=== PATIENT | female | born 1980 | race Caucasian/White ===

== ENCOUNTER 2018-06-16 13:52 | Outpatient (CLI) | payer OTHER ==
--- NOTE | 2018-06-16 15:15 | MRI ---
MRI CERVICAL SPINE WITHOUT CONTRAST: Technique: Multiplanar, multisequence MRI images were obtained of the cervical spine without contrast . Indication: Cervical radiculopathy. Neck pain with left shoulder radiation. FINDINGS: The cervical vertebra maintain normal height and alignment. Vertebral body signal appears normally ma intained. Disc spaces are maintained. No evidence of significant disc bulge or spondylosis seen at C2-3, C3-4, or C4-5. Foramina are patent at these levels. At C4-5, mild broad based disc bulge flattens the anterior thecal sac. The anterior subarachnoid spac e is preserved. There is no evidence of foraminal encroachment. At C6-7, minimal disc bulge and spondylosis flatten the thecal sac. Anterior subarachnoid space is pr eserved. Cervical cord signal is normal. IMPRESSION: 1. Mild disc bulge at C5-6 and C6-7 as described. No disc protrusion or foraminal encroachment identi fied. 2. Incidentally noted is prominence of the adenoids and palatine tonsils. Recommend clinic correlatio n. POS: [facility]
--- NOTE | 2018-06-16 16:55 | MRI ---
NONCONTRAST MRI LUMBAR SPINE: 06/16/18 HISTORY: Acute lumbar radiculopathy. COMPARISON: None available. FINDINGS: There is a subcentimeter increased density focus within the inferior pole left kidney which is too sm all to characterize but statistically likely represents a tiny cyst. Retroperitoneal structures other woods demonstrate a normal MRI appearance. The conus medullaris is normal in appearance and terminates at the T12-L1 level. Normal signal intensity is demonstrated throughout the bone marrow. L1-L2 level: There is minimal disc osteophyte complex resulting in slight effacement of the ventral a spect of the thecal sac. However, there is no significant narrowing of the central spinal canal. Edmond ral foramina are patent. L2-3 level: There is no disc bulge or disc herniation. Mild facet degenerative changes are present. C entral spinal canal and neural foramina are patent. L3-4 level: There is no disc bulge or disc herniation. Mild facet degenerative changes are present. C entral spinal canal and neural foramina are patent. L4-5 level: There is a minimal disc osteophyte complex with central disc protrusion with evidence of tiny annular tear involving the posterior central margin of the intervertebral disc. This does result in mild effacement of the ventral aspect of the thecal sac. There is only minimal encroachment on ea ch neural foramen. L5-S1 level: There is a small central disc protrusion with mild broad based. However, the is central spinal canal and neural foramina are patent at this level. IMPRESSION: Minimal degenerative changes seen within the lumbar spine. There is evidence of a small annular tear with associated central disc protrusion at the L4-5 level. POS: [facility]
== END 2018-06-16 13:53 | disposition home or self-care (01) ==
LOC: BICMRI 13:52
PROVIDERS: ATTEND Anesthesiology Pain Medicine
DX: M47.26 Other spondylosis with radiculopathy, lumbar region (principal); M51.16 Intervertebral disc disorders with radiculopathy, lumbar region; M50.122 Cervical disc disorder at C5-C6 level with radiculopathy; S34.104D Unspecified injury to L4 level of lumbar spinal cord, subsequent encounter
CPT/HCPCS: 72141; 72148

== ENCOUNTER 2018-10-22 15:01 | Outpatient (CLI) | payer OTHER ==
--- NOTE | 2018-10-22 15:35 | RAD ---
RIGHT HIP TWO VIEWS: HISTORY: Right hip pain. FINDINGS: No fracture, dislocation, or bony destruction is identified. POS: [facility]
--- NOTE | 2018-10-22 15:35 | RAD ---
RIGHT KNEE FOUR VIEWS: HISTORY: Right knee pain. FINDINGS: Postop changes of metallic hardware are seen in the proximal tibia. No acute fracture, dislocation, or bony destruction is identified. No joint effusion is seen. POS: [facility]
== END 2018-10-22 15:02 | disposition home or self-care (01) ==
LOC: RAD 15:01
PROVIDERS: ATTEND Family Medicine
DX: M25.551 Pain in right hip (principal); Z98.890 Other specified postprocedural states

== ENCOUNTER 2020-11-20 07:34 | Outpatient (CLI) | payer OTHER ==
[2020-11-20] MEDS ORDERED: Magnevist 469MG/ML 20 ML VIAL ONE (09:06)
== END 2020-11-20 07:35 | disposition home or self-care (01) ==
LOC: BICMRI 07:34
PROVIDERS: ATTEND Psychiatry & Neurology Neurology
DX: R27.0 Ataxia, unspecified (principal); M47.814 Spondylosis without myelopathy or radiculopathy, thoracic region
CPT/HCPCS: 70553; 72146; A9579